=== PATIENT | female | born 1955 | race African-American/Black ===

== ENCOUNTER 2020-05-18 10:26 | Emergency (ER) | payer MEDICARE, MEDICAID ==
[~2020-05-18] VITALS: Ht 175.3 cm; Wt 72.0 kg
[2020-05-18] MEDS: IBUPROFEN 600MG TABLET PO ONE ×2 (12:30→12:53)
[2020-05-18] MEDS ORDERED: IBUP-2028 MT (13:45)
[2020-05-18 14:15] VITALS: BP 144/70
== END 2020-05-18 15:05 | disposition home or self-care (01) ==
LOC: ER 10:26
DX: M25.531 Pain in right wrist (principal); M25.562 Pain in left knee; M25.512 Pain in left shoulder; V98.8XXA Other specified transport accidents, initial encounter; Y93.89 Activity, other specified; Y92.89 Other specified places as the place of occurrence of the external cause; Y99.8 Other external cause status
CPT/HCPCS: 29125; 73030; 73110; 73562; 99284

== ENCOUNTER 2024-04-24 08:31 | Emergency (ER) | payer MEDICARE, MEDICAID ==
[~2024-04-24] VITALS: Ht 175.3 cm; Wt 72.7 kg
[~2024-04-24 08:31] MED LIST: IBUP-2028 MT
[2024-04-24 08:38] VITALS: O2SAT 99
[2024-04-24] MEDS: DEXAMETHASONE 10 MG/ML VIAL IM ONE (09:14)
[2024-04-24] MEDS ORDERED: AZIT250T12 MT (09:57)
[2024-04-24 10:04] VITALS: BP 122/66; PULSE 70; RESP 18; TEMP 36.7; O2SAT 99
== END 2024-04-24 10:05 | disposition home or self-care (01) ==
LOC: ER 08:31
DX: K12.2 Cellulitis and abscess of mouth (principal); Z79.899 Other long term (current) drug therapy
CPT/HCPCS: 99283; 96372; J1100